=== PATIENT | female | born 1995 | race Caucasian/White ===

== ENCOUNTER 2024-05-11 00:59 | Emergency (ER) | payer SELFPAY ==
[2024-05-11 01:00] VITALS: BP 113/98; PULSE 102; RESP 18; TEMP 37.1; O2SAT 98; BMI 27.1
[2024-05-11 01:04] VITALS: BP 113/98; PULSE 102; RESP 18; TEMP 37.1; O2SAT 98
--- NOTE | 2024-05-11 01:28 | EX.ED.DYSGE1 ---
HPI History of Present Illness Chief Complaint: Other, Pain/Inj Informant: patient Narrative Narrative: Patient is a 29-year-old female with no reported significant past medical history. She states that she was at work this evening when she started developing right sided facial pain and swelling. She states that as time passed the swelling and pain increased and she noticed that it worsened around dinnertime. She states she is taken [id number] medication without symptom improvement and with concern for infection she presents for evaluation [facility] Medical History no medical history no medical history Home Medications ?Medication ?Instructions ?Recorded ?Last Taken ?Type amoxicillin 875 mg-potassium 1 tab PO BID 10 days #20 tabs 05/11/24 Unknown Rx clavulanate 125 mg tablet oxycodone-acetaminophen 5 mg-325 1 tab PO Q6H PRN pain 3 days #12 05/11/24 Unknown Rx mg tablet (Percocet) tabs Allergy/AdvReac Type Severity Reaction Status Date / Time No Known Allergies Allergy Verified 05/11/24 01:36 Social History Smoking Status: Current every day smoker tobacco type: cigarettes ROS ROS ED Constitutional Constitutional ED: Denies chills or fever(s) ENT ENT ED: Reports other Details: Positive right cheek/facial pain ; Denies rhinorrhea or sore throat Cardiovascular Cardiovascular: Denies chest pain Respiratory/Chest Respiratory/Chest: Denies cough or dyspnea Gastrointestinal Gastrointestinal: Denies abdominal pain, diarrhea, nausea or vomiting Genitourinary Genitourinary ED: Denies dysuria Musculoskeletal Musculoskeletal: Denies myalgias or neck pain Integumentary Denies rash Neurologic Neurologic: Denies headache(s) Hematologic/Lymphatic Hematologic/Lymphatic: Denies easy bleeding or easy bruising Allergic/Immunologic Allergic/Immunologic ED: Denies mouth swelling or tongue swelling EXAM Physical Exam Const Vital Signs: 05/11/24 01:00 05/11/24 01:04 05/11/24 01:07 Temperature 98.8 F 98.8 F Temperature Source Oral Oral Pulse Rate 102 H 102 H Respiratory Rate 18 18 Respiratory Effort Normal Blood Pressure 113/98 H 113/98 H Blood Pressure Mean 103 103 Pulse Ox 98 98 Oxygen Delivery Method Room Air Room Air 05/11/24 01:32 Temperature 98.7 F Temperature Source Pulse Rate 88 Respiratory Rate 16 Respiratory Effort Blood Pressure 115/85 H Blood Pressure Mean 95 Pulse Ox 98 Oxygen Delivery Method Positive well nourished and well developed General Appearance ED: well developed HEENT Reports TM's clear and moist mucous membranes HEENT Narrative: There is soft tissue swelling with faint erythema to the right lateral cheek over top the parotid gland. There is pain with palpation at this site without induration or fluctuance noted. No tongue or lip swelling noted. No oral lesions no airway edema or compromise. No obvious stone palpated along the right lateral cheek along Stensen's duct Tympanic Membrane ED: Yes TM's clear Eyes PERRL and EOMs intact bilaterally General Eye ED: Negative for scleral icterus Neck no lymphadenopathy and supple Neck Narrative: No brawny edema in the submental space to suggest Mike's angina No nuchal rigidity or meningeal sign Resp normal respiratory effort and clear to auscultation bilaterally Cardio regular rate and regular rhythm Extremity normal to inspection Neuro oriented x3, CN's II-XII intact bilaterally and no sensory deficits noted Sensorium / Orientation: alert Motor Exam: strength 5/5 throughout Psych mental status grossly normal Skin no rashes or lesions noted Skin Narrative: Soft tissue swelling to the right lateral cheek consistent with acute parotiditis as documented above MDM MDM MDM Narrative Medical decision making narrative: Patient arrived to the ER afebrile. She had no signs of infection of the posterior pharynx such as findings concerning for strep pharyngitis or peritonsillar abscess. There is no obvious lymphadenopathy going against an infected lymph node and there is no swelling in the submental space to suggest Mike's angina. History and exam is most consistent with a obstructed or infected parotid gland. As she does not have physical exam findings to suggest respiratory distress or airway compromise or systemic infection I do not feel there is need for imaging or laboratory studies. Patient will start on antibiotics with concern for potential infection but also advised to suck on sour/tart candies to expel any potential stone. She can follow-up with ENT if symptoms do not resolve with treatment but at this time as he does not have signs of systemic infection or airway compromise there is no need for workup and she is otherwise safe for discharge with symptomatic care History & Record Review Discussion w/independent historian: Patient Discharge Plan Triage Chief Complaint: Other, Pain/Inj ED Provider: Tin Zaragoza Dx/Rx/DC Orders Clinical Impression: Acute parotitis, Hypertension Instructions: ED Salivary Gland Infection, ED Salivary Gland Stones Prescriptions: New amoxicillin-pot clavulanate 875-125 mg tablet 1 tab PO BID 10 Days Qty: 20 0RF oxycodone-acetaminophen [Percocet] 5-325 mg tablet 1 tab PO Q6H PRN (Reason: pain) 3 Days Qty: 12 0RF Primary Care Provider: Care Physician,No Primary Referrals: Joi Molina MD [Med Staff - Active Staff] - Balaji Medeiros MD [Med Staff - Active Staff] - Activity Restrictions/Additional Instructions: Please take the antibiotic as directed to cover for infectious process of your enlarged parotid gland. However as there is also concern that the gland is swollen because of an obstructive stone suck on sour tart candies throughout the day to help stimulate saliva production and expel any blockage. If you have worsening symptoms or any further concerns please return to the ER for repeat evaluation Print Language: Colombian Disposition Disposition: Home, Self Care Discharge Date/Time: 05/11/24 01:43
[2024-05-11 01:32] VITALS: BP 115/85; PULSE 88; RESP 16; TEMP 37.1; O2SAT 98
[2024-05-11] MEDS: Amox/Clavulanate 875 MG Tablet PO (01:36)
[2024-05-11] MEDS: oxyCODONE 5 MG Tablet 10 MG PO (01:36)
[2024-05-11] MEDS: dexAMETHasone 10 MG/ML Vial PO.IVFORM (01:36)
== END 2024-05-11 01:43 | disposition home or self-care (01) ==
LOC: ED 01:39
PROVIDERS: Emergency Provider Emergency Medicine; Visit Provider Emergency Medicine
DX: K11.20 Sialoadenitis, unspecified (principal); I10 Essential (primary) hypertension; F17.210 Nicotine dependence, cigarettes, uncomplicated
CPT/HCPCS: 99283